=== PATIENT | male | born 1990 | race Caucasian/White ===

== ENCOUNTER 2020-06-14 02:01 | Emergency (ER) | payer OTHER ==
[~2020-06-14] VITALS: Ht 167.6 cm; Wt 65.8 kg
[2020-06-14] MEDS ORDERED: CELEXA 20 MG TA20 MG PO (02:06)
[2020-06-14] MEDS ORDERED: XANAX 0.5 MG0.5 MG PO (02:06)
[2020-06-14] MEDS ORDERED: ULTRAM 50MG TAB50 MG PO (03:00)
[2020-06-14] MEDS ORDERED: NAPROSYN500 MG PO (03:00)
[2020-06-14 03:05] VITALS: BP 126/73
[2020-06-14] MEDS ORDERED: NORCO 5-325 TA1 EAC2 PO (03:12)
== END 2020-06-14 03:20 | disposition home or self-care (01) ==
LOC: ER 02:01
DX: M25.512 Pain in left shoulder (principal); Z79.899 Other long term (current) drug therapy